=== PATIENT | female | born 1950 | race Caucasian/White ===

== ENCOUNTER 2020-08-29 07:48 | Outpatient (CLI) | payer MEDICARE ==
[~2020-08-29] VITALS: Ht 162.6 cm; Wt 82.6 kg
[~2020-08-29 07:48] MED LIST: ASCO500T8 PO; ATOR10TA9 PO; BUPIVACAINE/PF 0.5% ONE; CHOL10003 PO; EPINEPHRINE 1 MG/ML, 1ML ONE; OMEG-76 PO; UBIQUINOL PO; VITA100035 PO; VITA1TAB19 PO
[2020-08-29] MEDS ORDERED: LIDOCAINE 1%-EPI 1:100K, 20ML ONE (08:30)
[2020-08-29] MEDS ORDERED: SODIUM BICARBONATE 4.2%, 5ML ONE (08:30)
[2020-08-29] MEDS ORDERED: LIDOCAINE 1%, 20ML ONE (08:30)
[2020-08-29] MEDS ORDERED: FENTANYL PF 100 MCG/2ML ONE ×2 (09:07→11:00)
[2020-08-29] MEDS ORDERED: MIDAZOLAM 1 MG/ML, 2ML ONE (09:07)
[2020-08-29] MEDS ORDERED: CHLORHEXIDINE 15 ML UDC ONE (09:25)
[2020-08-29] MEDS ORDERED: EPHEDRINE 50 MG/ML, 1ML ONE (09:43)
[2020-08-29] MEDS ORDERED: PHENYLEPHRINE 10 MG/ML ONE (09:43)
[2020-08-29] MEDS ORDERED: CHLORHEXIDINE 15 ML UDC PO ONE (10:00)
[2020-08-29] MEDS ORDERED: BUPIVACAINE/PF-EPI 0.5% 1:200K INFIL ONE (10:00)
[2020-08-29] MEDS ORDERED: LACTATED RINGERS 1,000 ML IV SCH (10:00)
[2020-08-29] MEDS ORDERED: LIDOCAINE-MPF 2% ,5ML ONE (10:24)
[2020-08-29] MEDS ORDERED: KETOROLAC 30 MG/1 ML ONE (10:24)
[2020-08-29] MEDS ORDERED: CEFAZOLIN 1,000 MG ONE (10:25)
[2020-08-29] MEDS ORDERED: ONDANSETRON 2MG/ML, 2ML ONE (10:25)
[2020-08-29] MEDS ORDERED: DEXAMETHASONE 4 MG/ML, 5ML ONE (10:25)
[2020-08-29] MEDS ORDERED: PROPOFOL 10 MG/ML, 20ML ONE (10:25)
[2020-08-29] MEDS ORDERED: ONDA4TAB7 PO (10:39)
[2020-08-29] MEDS ORDERED: HYDR-2214 PO (10:39)
[2020-08-29] MEDS ORDERED: ACETAMINOPHEN 325 MG TABLET PO PRN (11:00)
[2020-08-29] MEDS ORDERED: ALBUTEROL SULFATE 2.5 MG/3 ML NPPB PRN (11:00)
[2020-08-29] MEDS ORDERED: LORazepam 2 MG/ML, 1ML IVPush PRN (11:00)
[2020-08-29] MEDS ORDERED: OXYcodone 5 MG/5 ML ORAL.SOL UDC PO PRN (11:00)
[2020-08-29] MEDS ORDERED: MEPERIDINE/PF 25MG/0.5ML IVPush PRN (11:00)
[2020-08-29] MEDS ORDERED: LABETALOL 5MG/ML, 20ML IV PRN (11:00)
[2020-08-29] MEDS ORDERED: ACETAMINOPHEN 650 MG/20.3 ML UDC ONE (11:00)
[2020-08-29] MEDS ORDERED: HYDROmorphone 1 MG/ML, 1ML INJ IVPush PRN (11:00)
[2020-08-29] MEDS ORDERED: PROMETHAZINE 25 MG/ML, 1ML IVPush PRN (11:00)
[2020-08-29] MEDS ORDERED: OXYcodone 5 MG/5 ML ORAL.SOL UDC ONE (11:01)
[2020-08-29] MEDS: FENTANYL PF 100 MCG/2ML IV PRN ×2 (11:04→11:14)
== END 2020-08-29 12:40 | disposition home or self-care (01) ==
LOC: CFH 07:48 → EDSTATUS 10:00 → OUT 12:40
PROVIDERS: ATTEND Surgery
DX: D48.62 Neoplasm of uncertain behavior of left breast (principal); N62 Hypertrophy of breast; F06.4 Anxiety disorder due to known physiological condition; F17.210 Nicotine dependence, cigarettes, uncomplicated; E66.9 Obesity, unspecified; Z20.822 Contact with and (suspected) exposure to COVID-19; Z68.31 Body mass index [BMI] 31.0-31.9, adult; Z79.899 Other long term (current) drug therapy; Z82.49 Family history of ischemic heart disease and other diseases of the circulatory system; Z80.1 Family history of malignant neoplasm of trachea, bronchus and lung
CPT/HCPCS: 19125; 19281; 76098; 88305; 93005; J0171; J0690; J1100; J1885; J2250; J2370; J2405; J2704; J3010; J7120; U0003; U0005